=== PATIENT | male | born 1980 | race American Indian/Alaskan Native ===

== ENCOUNTER 2018-01-27 16:10 | Emergency (ER) | payer MEDICARE ==
[2018-01-27 17:34] VITALS: BP 128/90
--- NOTE | 2018-01-27 19:03 | Emergency Department Report ---
Abscess Boil HPI - HPI Chief Complaint: Skin/Abscess/Foreign Body Stated Complaint: RT LEG BOIL Time Seen by Provider: 01/27/18 18:54 Duration: >1 Week (2 months) Location: Other (right buttock) Severity: Mild History: Yes Pain, Yes Purulent Drainage, No Fever, No Numbness, No Foreign Body , No Previous History, No Insect Bite HPI: This is a 37-year-old [place] male who presents with the abscessed right buttock for 2 months. Past medical history of asthma and recurrent abscess. Patient states he was seen by El 2 months ago and wound was drained and he was placed on antibiotics. Patient states he completed antibiotics as prescribed. Patient states abscess with her 3-4 weeks ago. His girlfriend tried to drain and then successful. He noticed pus drainage from abscess this morning and decided to come in for evaluation. Patient also requesting refill on albuterol inhaler. He denies numbness or tingling, fever, insect bite. Home Medications: Home Medications Medication Instructions Recorded Confirmed Last Taken Divalproex [Rebecca Mcdaniel] 1,000 mg PO QHS 07/16/14 07/16/14 07/16/14 OLANzapine ZYDIS [ZyPREXA Zydis] 10 mg PO DAILY 07/16/14 07/16/14 07/16/14 Previous Rx's Medication Instructions Recorded Last Taken Type Albuterol Sulfate [Ventolin HFA] 2 puff IH Q4H PRN #1 hfa.aer.ad 07/16/14 Unknown Rx Azithromycin [Zithromax Z-JENARO] 250 mg PO DAILY #6 tablet 07/16/14 Unknown Rx Montelukast Sodium [Singulair] 10 mg PO DAILY #30 tablet 07/16/14 Unknown Rx Prednisone [Prednisone 10 mg 10 mg PO .TAPER #1 tab.ds.pk 07/16/14 Unknown Rx (6-Day Pack, 21 Tabs)] ALBUTEROL Inhaler(NF) [VENTOLIN 1 puff IH Q4-6H PRN #1 inha 01/27/18 Unknown Rx Inhaler(NF)] Naproxen [Naprosyn] 500 mg PO TID PRN #12 tablet 01/27/18 Unknown Rx Sulfamethoxazole/Trimethoprim 1 each PO BID #20 tablet 01/27/18 Unknown Rx [Bactrim DS TAB] Allergies/Adverse Reactions: Allergies Allergy/AdvReac Type Severity Reaction Status Date / Time haloperidol [From Haldol] Allergy Vomiting Verified 07/16/14 11:36 haloperidol lactate Allergy Vomiting Verified 07/16/14 11:36 [From Haldol] ED Review of Systems ROS: Stated complaint: RT LEG BOIL Other details as noted in HPI Constitutional: denies: chills, fever Respiratory: denies: cough, shortness of breath, wheezing Cardiovascular: denies: chest pain, palpitations Gastrointestinal: denies: abdominal pain, nausea, diarrhea Skin: lesions (abscess to right buttock). denies: rash Neurological: denies: headache, weakness, paresthesias Psychiatric: denies: anxiety, depression ED Past Medical Hx - Past Medical History Hx Asthma: Yes Additional medical history: hx pneumonia 2013. L shoulder rotator cuff injury - Social History Smoking Status: Current Every Day Smoker Substance Use Type: None - Medications Home Medications: Home Medications Medication Instructions Recorded Confirmed Last Taken Type Albuterol Sulfate [Ventolin HFA] 2 puff IH Q4H PRN #1 hfa.aer.ad 07/16/14 Unknown Rx Azithromycin [Zithromax Z-JENARO] 250 mg PO DAILY #6 tablet 07/16/[address] [Rebecca Mcdaniel] 1,000 mg PO QHS 07/16/14 07/16/14 07/16/14 History Montelukast Sodium [Singulair] 10 mg PO DAILY #30 tablet 07/16/14 Unknown Rx OLANzapine ZYDIS [ZyPREXA Zydis] 10 mg PO DAILY 07/16/14 07/16/14 07/16/14 History Prednisone [Prednisone 10 mg 10 mg PO .TAPER #1 tab.ds.pk 07/16/14 Unknown Rx (6-Day Pack, 21 Tabs)] ALBUTEROL Inhaler(NF) [VENTOLIN 1 puff IH Q4-6H PRN #1 inha 01/27/18 Unknown Rx Inhaler(NF)] Naproxen [Naprosyn] 500 mg PO TID PRN #12 tablet 01/27/18 Unknown Rx Sulfamethoxazole/Trimethoprim 1 each PO BID #20 tablet 01/27/18 Unknown Rx [Bactrim DS TAB] ED Abscess Boil Physical Exam - Exam General: Vital signs noted. No distress. Alert and acting appropriately. Front/Back of Body, Lg (Color): 1 - 1 cm erythematous nodule, tenderness, non-fluctuant, no surrounding cellulitis Size: 1 cm Exam: Yes Tenderness, Yes Normal Neurologic Exam, Yes Normal Circulation, No Fluctuance, No Surrounding Cellulites/Erythema, No Lymphangitis, No Crepitation , No Heart Murmur I & D Note - I & D Note I & D Note: The area was prepared and draped in the usual, sterile manner. The site was anesthetized with 2% lidocaine without epinephrine. A linear incision along the local skin lines was made and the purulent material expressed. The abcess was explored thoroughly and sequestered pockets were opened. Bleeding was minimal. Packing: idodoform. Followup: The patient tolerated the procedure well without complications. Standard post-procedure care was explained and return precautions are given. ED Course Vital Signs 01/27/18 17:31 Temperature 98.6 F Pulse Rate 81 Blood Pressure 128/90 O2 Sat by Pulse 98 Oximetry Critical care attestation.: If time is entered above; I have spent that time in minutes in the direct care of this critically ill patient, excluding procedure time. ED Medical Decision Making - Medical Decision Making Patient is stable and examined by me. Physical assessment of 1 cm non- fluctuance nodule to right buttock. No acute signs of distress noted. Given tramadol 50 mg po once in ER. I&D refer to note. Discussed plan to start bactrim DS and naproxen with patient. Refill albuterol inhaler. Educated patient on follow up plan to have packing removed and wound reassessed in 2-3 days. Referral to dermatology for continuous care. Patient agrees to ED plan of care. Discharged home and follow up with PCP in 2-3 days. ED Disposition Clinical Impression: Abscess of buttock, right Asthma Qualifiers: Asthma severity: mild Asthma persistence: intermittent Asthma complication type : uncomplicated Qualified Code(s): J45.20 - Mild intermittent asthma, uncomplicated Disposition: TO HOME OR SELFCARE Is pt being admited?: No Does the pt Need Aspirin: No Condition: Stable Instructions: Abscess (ED), Abscess Incision and Drainage (ED), Asthma (ED) Additional Instructions: Keep packing in place for 2-3 days. Return to ER or f/u with PCP to have packing removed and wound reassessed. Complete full round of bactrim DS antibiotic as prescribed. Follow up with PCP or ER in 2-3 days. Return to ER if foul smelling discharge, swelling, or severe pain to wound. Prescriptions: ALBUTEROL Inhaler(NF) [VENTOLIN Inhaler(NF)] 1 puff IH Q4-6H PRN #1 inha PRN Reason: Shortness Of Breath Naproxen [Naprosyn] 500 mg PO TID PRN #12 tablet PRN Reason: Pain , Severe (7-10) Sulfamethoxazole/Trimethoprim [Bactrim DS TAB] 1 each PO BID #20 tablet Referrals: [facility] [Provider Group] - 3-5 Days [facility] [Outside] - 3-5 Days [facility] [Provider Group] - 3-5 Days Time of Disposition: 20:41
[2018-01-27] MEDS ORDERED: XYLOCAINE 2% INFILTRATI ONE (19:05)
== END 2018-01-27 21:30 | disposition home or self-care (01) ==
LOC: ED 16:10
DX: L02.31 Cutaneous abscess of buttock (principal); J45.20 Mild intermittent asthma, uncomplicated; F17.200 Nicotine dependence, unspecified, uncomplicated; Z88.8 Allergy status to other drugs, medicaments and biological substances
CPT/HCPCS: 99282